=== PATIENT | male | born 1995 | race African-American/Black ===

== ENCOUNTER 2021-10-18 20:23 | Emergency (ER) | payer BC ==
[2021-10-18] MEDS ORDERED: Acetaminophen 500 MG TAB ONE (20:43)
[2021-10-18] MEDS ORDERED: Ibuprofen 800 MG TAB ONE (21:41)
[2021-10-19 11:44] LABS: SARS-CoV-2 PCR by NAA Not Detected (NotDetected)
== END 2021-10-19 00:32 | disposition home or self-care (01) ==
LOC: ERS 20:23
DX: B34.9 Viral infection, unspecified (principal); Z20.822 Contact with and (suspected) exposure to COVID-19
CPT/HCPCS: 99283; U0003; U0005

== ENCOUNTER 2022-11-29 20:09 | Emergency (ER) | payer SELFPAY ==
[2022-11-29] MEDS ORDERED: Ondansetron ODT 4 MG TAB ONE (20:39)
[2022-11-29] MEDS ORDERED: Acetaminophen 500 MG TAB ONE (20:39)
[2022-11-29 23:21] LABS: SARS-CoV-2 NAA Rapid Test DETECTED (NotDetected)
== END 2022-11-29 22:11 | disposition home or self-care (01) ==
LOC: ERS 20:09
DX: B34.9 Viral infection, unspecified (principal); Z20.822 Contact with and (suspected) exposure to COVID-19
CPT/HCPCS: 99284; Q0162

== ENCOUNTER 2025-10-28 22:34 | Emergency (ER) | payer SELFPAY ==
[2025-10-28 23:19] LABS: Bacteria/HPF None Seen HPF (None Seen); CAUTI Indications for Culture Pelvic or flank pain; Glucose, Urine (Dipstick) Normal (Negative); Leukocyte Negative Leu/uL (Negative); Protein, Urine (Dipstick) Negative (Neg-Trace); RBC/HPF 0-3 HPF (0-3); Specific Gravity, Urine 1.014 (1.002-1.036); WBC/HPF 0-3 HPF (0-3)
[2025-10-28 23:25] LABS: Urine Culture Reflex No No
[2025-10-28 23:29] LABS: #Basophils 0.04 10x3/uL (0.0-0.2); #Eosinophils 0.09 10x3/uL (0.0-0.7); #Monocytes 0.75 10x3/uL (0.11-0.59); #Neutrophils 7.27 10x3/uL (1.40-6.50); %Basophils 0.3 % (0.0-1.0); %Eosinophils 0.8 % (0.0-10.0); %Lymphocytes 28.8 % (21.0-51.0); %Monocytes 6.5 % (0.0-10.0); %Neutrophils 63.4 % (42.0-75.0); Hematocrit 47.3 % (42.0-52.0); Hemoglobin 16.1 g/dL (14.0-18.0); Mean Corpuscular Hemoglobin 28.3 pg (27.0-31.0); Mean Corpuscular Volume 83.1 fL (78.0-98.0); Platelet Count 291 10x3/uL (130-400); Red Blood Cell (RBC) Count 5.69 mill/uL (4.70-6.10); White Blood Cell (WBC) Count 11.47 10x3/uL (4.8-10.8)
[2025-10-28 23:57] LABS: ALT (SGPT) 28 U/L (Less than 45); AST (SGOT) 24 U/L (11-34); Albumin 3.7 g/dL (3.1-4.5); Alkaline Phosphatase 102 U/L (40-110); Anion Gap 14 mmol/L (10-20); BUN (Urea Nitrogen) 8 mg/dL (8.9-20.6); Bilirubin, Total 0.8 mg/dL (0.3-1.2); Calc. Creatinine Clearance 0 mL/min (70-130); Calcium 9.3 mg/dL (7.8-10.44); Carbon Dioxide 24 mmol/L (22-29); Chloride 103 mmol/L (98-107); Globulin 4.0 g/dL (2.4-3.5); Glucose 107 mg/dL (70-105); Lipase 19 U/L (8-78); Potassium 3.9 mmol/L (3.5-5.1); Sodium 137 mmol/L (136-145)
[2025-10-29] MEDS ORDERED: Ketorolac Tromethamine 30 MG (1 mL) VIAL ONE (00:25)
== END 2025-10-29 02:35 | disposition home or self-care (01) ==
LOC: ERS 22:34
DX: K63.89 Other specified diseases of intestine (principal)
CPT/HCPCS: 36415; 74177; 80053; 81001; 83690; 85025; 96374; J1885